=== PATIENT | female | born 1985 | race Caucasian/White ===

== ENCOUNTER 2019-05-31 11:08 | Outpatient (CLI) | payer OTHER ==
[~2019-05-31] VITALS: Ht 162.6 cm; Wt 100.9 kg
[~2019-05-31 11:08] MED LIST: FERR159T PO; PREN-19 PO
[2019-05-31 11:40] VITALS: BP 113/70; PULSE 83; Ht 162.6 cm; Wt 100.9 kg
== END 2019-05-31 15:15 | disposition home or self-care (01) ==
LOC: OBT 11:08 → L-D 11:15 → OBT 15:15
PROVIDERS: ATTEND Obstetrics & Gynecology
DX: O26.892 Other specified pregnancy related conditions, second trimester (principal); Z3A.24 24 weeks gestation of pregnancy; R10.30 Lower abdominal pain, unspecified
CPT/HCPCS: 76815; 76817; 81003; Z7500; G0463